=== PATIENT | female | born 1950 | race Caucasian/White ===

== ENCOUNTER 2016-11-24 08:49 | Emergency (ER) | payer OTHER, BC ==
--- NOTE | 2016-11-24 09:08 | EDPHY ---
General Narrative: CHIEF COMPLAINT: fall, left knee, ankle and foot pain HISTORY OF PRESENT ILLNESS: patient was walking out of a restaurant several days ago when she slipped down a slope. She said she slid and turned sideways striking her left leg on a curb. She is not entirely sure what happened otherwise. Since then she has had pain in the knee ankle and foot. The knee was the primary complaint 1st had the most swelling but is improved. She is also having pain over the lateral ankle and foot. Pain is worse with ambulation and palpation. The swelling is enough that it is difficult for her to bend the knee. Improved at rest and elevation. She also were compression stockings that helped. Seen at outside facility without any imaging and no formal diagnosis. No other associated complaints or modifying factors. No use of blood thinners. PRIOR ORTHO INJURIES: None ESTABLISHED ORTHOPEDIST: [facility], appointment on Saturday REVIEW OF SYSTEMS: Ten systems reviewed and are negative unless otherwise noted in the HPI EXAMINATION General Appearance: Alert, no distress Cardiovascular: Pulses normal throughout. symmetric radial, DP and PT pulses are 2+. Brisk cap refill Neurological: A&O, sensory symmetric, strength symmetric Skin: Warm and dry, no rash Extremities: Tenderness to palpation of the left knee, left ankle and midfoot. There is no crepitus at any level. There is mild swelling about the knee and the lateral malleolus on the left. Range of motion is fully intact in the ankle and foot. There is limited flexion of the knee due to swelling. Neurovascular intact distally. No erythema, edema or pain of the calf. No palpable cord. Psychiatric: Mood and affect normal DIFFERENTIAL DIAGNOSES: Including but not limited to sprain, strain, fracture, fracture dislocation, contusion MDM: 9:05 a.m. mechanical injury with left knee, ankle and foot pain. Examination is more consistent with sprain and fracture. She has been seen prior to today but without imaging, thus I will obtain x-rays of all 3 areas. She is neurovascular intact in no acute distress 10:38 a.m. x-ray of the ankle shows a lucency of the talar dome with questionable etiology. I will place the patient in a boot and crutches. I have paged Orthopedics to discuss their preferred management of this. X-ray of the knee is unremarkable. X-ray of the foot is pending, but I do not appreciate any findings by my interpretation. 11:00 a.m. patient has been placed in a boot for prophylaxis. She has crutches at home. I discussed the case with Dr. Holguin, he says the patient can be discharged without further imaging. He will see the patient in the office next week. I discussed this with the patient. She will go home in the boot and use her crutches at home. She is nonweightbearing of painful on weight-bearing as tolerated. Tramadol prescription provided. Follow up with Orthopedics next week. She informed that she also has an appointment with Sports Medicine on Saturday. ED Precautions: Worsening pain. Erythema, edema, cyanosis, pallor, paresthesia or anesthesia. SUPERVISION: This patient was independently evaluated without the aide of supervising physician. - History Smoking Status: Never smoked - Objective Vital Signs: Initial Vital Signs Temperature (C) 97.7 F 11/24/16 08:50 Heart Rate 55 L 11/24/16 08:50 Respiratory Rate 16 11/24/16 08:50 Blood Pressure 169/77 H 11/24/16 08:50 O2 Sat (%) 93 11/24/16 08:50 O2 Delivery Mode Room Air Allergies/Adverse Reactions: codeine [Codeine] Allergy (Intermediate, Verified 11/26/11 08:39) erythromycin base [Erythromycin Base] Adverse Reaction (Severe, Verified 08:39) NAUSEA Home Medications: Medication Instructions Recorded Pantoprazole Sodium [Protonix] 40 mg PO DAILY 11/26/11 Propranolol HCl 60 mg PO 05/23/12 traMADol [Ultram 50 mg (*)] 50 mg PO Q4 PRN #12 tab 11/24/16 Departure - Departure Disposition: Home, Routine, Self-Care Clinical Impression: Left knee sprain Qualifiers: Encounter type: initial encounter Involved ligament of knee: unspecified ligament Qualified Code(s): S83.92XA - Sprain of unspecified site of left knee, initial encounter Left ankle sprain Qualifiers: Encounter type: initial encounter Involved ligament of ankle: unspecified ligament Qualified Code(s): S93.402A - Sprain of unspecified ligament of left ankle, initial encounter Sprain of foot, left Qualifiers: Encounter type: initial encounter Qualified Code(s): S93.602A - Unspecified sprain of left foot, initial encounter Fracture of talus of left ankle, closed Qualifiers: Encounter type: initial encounter Talus location: dome of talus Fracture alignment: nondisplaced Qualified Code(s): S92.145A - Nondisplaced dome fracture of left talus, initial encounter for closed fracture Condition: Good Instructions: Ankle Sprain (ED), Knee Sprain (ED), Foot Sprain (ED) Additional Instructions: Follow-up with Orthopedics for definitive care. Return to the ER for worsening symptoms, numbness or tingling Referrals: Marisol Howe MD [Primary Care Provider] - As per Instructions Greg Holguin MD [Medical Doctor] - As per Instructions Prescriptions: traMADol [Ultram 50 mg (*)] 50 mg PO Q4 PRN #12 tab PRN Reason: Pain, Mild
== END 2016-11-24 11:20 | disposition home or self-care (01) ==
DX: S92.145A Nondisplaced dome fracture of left talus, initial encounter for closed fracture (principal); S83.92XA Sprain of unspecified site of left knee, initial encounter; S93.402A Sprain of unspecified ligament of left ankle, initial encounter; S93.602A Unspecified sprain of left foot, initial encounter; W01.198A Fall on same level from slipping, tripping and stumbling with subsequent striking against other object, initial encounter; Y92.511 Restaurant or cafe as the place of occurrence of the external cause; Y99.8 Other external cause status; Y93.01 Activity, walking, marching and hiking
CPT/HCPCS: 73562; 73610; 73630; 99283; L4386

== ENCOUNTER 2017-11-27 20:16 | Emergency (ER) | payer OTHER, BC ==
--- NOTE | 2017-11-27 21:14 | EDPHY ---
H & P Time Seen by Provider: 11/27/17 20:52 HPI/ROS: CHIEF COMPLAINT: High blood pressure HISTORY OF PRESENT ILLNESS: 67-year-old woman presents with high blood pressure which was seen today in the PCP office. 175 systolic at home. She was at Dr. Howe office and was changed from propranolol which she had been on for about 8 years for migraines to metoprolol 25 and Norvasc 5. She took a dose of each today and was still hypertensive and presents for evaluation. Specifically denies headache or vision symptoms, no difficulty with speech or balance or thought strength or sensation. No chest pain or shortness of breath, normal urination. REVIEW OF SYSTEMS: Eye: no change in vision ENT: no sore throat Cardiac: no chest pain or syncope Pulmonary: no cough or SOB Abdomen: no vomiting, no abdominal pain Musculoskeletal: no back pain Skin: no rash Neuro: no headache Constitutional: no fever : no urinary symptoms, normal urination A comprehensive 10 point review of systems is otherwise negative aside from elements mentioned in the history of present illness. PAST MEDICAL HISTORY: Recently diagnosed hypertension, reflux, migraines, C- section and appy Social history: , here with her spouse General Appearance: Alert and conversant, cooperative. Eyes: No scleral icterus. ENT, Mouth: Normal mucous membranes. Respiratory: Normal respiratory effort, breath sounds equal, lungs are clear to auscultation. No rales. Cardiovascular: Regular rate and rhythm. No murmur. Gastrointestinal: Abdomen is soft and non tender. Neurological: Alert, face symmetric, normal motor and sensory in extremities. Pupils equal and reactive, extraocular motion intact, fluent speech, not ataxic. Skin: Warm and dry, no rashes. Musculoskeletal: No peripheral edema. Psychiatric: Not agitated. Emergency Department course/MDM: Patient presents with hypertension but is unlikely having an acute hypertensive emergency or end-organ damage. She does say that she has been more tired over the past year and has had difficulty over the past year making it to the end of her full hour of exercise class although she has been continuing to go. She goes to [facility] tomorrow for follow-up to see Virgil Lynch for her hypertension. I think it is reasonable for her to be discharged tonight and follow up with Cardiology tomorrow. Patient and state they are comfortable with this plan. Smoking Status: Never smoked Constitutional: Initial Vital Signs Temperature (C) 36.7 C 11/27/17 20:29 Heart Rate 50 L 11/27/17 20:29 Respiratory Rate 16 11/27/17 20:29 Blood Pressure 201/69 H 11/27/17 20:29 O2 Sat (%) 95 11/27/17 20:29 O2 Delivery Mode Room Air Allergies/Adverse Reactions: codeine [Codeine] Allergy (Intermediate, Verified 11/26/11 08:39) erythromycin base [Erythromycin Base] Adverse Reaction (Severe, Verified 08:39) NAUSEA Home Medications: Medication Instructions Recorded Pantoprazole Sodium [Protonix] 40 mg PO DAILY 11/26/11 Metoprolol Succinate 11/27/17 amLODIPine BESYLATE 11/27/17 Departure - Departure Disposition: Home, Routine, Self-Care Clinical Impression: Hypertension Condition: Good Instructions: Hypertension (ED) Additional Instructions: Please follow-up at [facility] tomorrow as scheduled. Referrals: Virgil Lynch, CAD OPERATOR [Certified Nurse Practioner] - As per Instructions
== END 2017-11-27 21:22 | disposition home or self-care (01) ==
DX: I10 Essential (primary) hypertension (principal)

== ENCOUNTER → 2017-12-04 | Outpatient (CLI) | payer OTHER, BC | LOC: BHFA 09:15 | PROVIDERS: ATTEND Internal Medicine Cardiovascular Disease | DX: R00.2 Palpitations (principal) ==

== ENCOUNTER → 2017-12-10 | Outpatient (CLI) | payer OTHER, BC | LOC: BHFA 09:00 | PROVIDERS: ATTEND Internal Medicine | DX: R00.2 Palpitations (principal); R06.02 Shortness of breath | CPT/HCPCS: 78452; 93017; A9500; J2785 ==

== ENCOUNTER → 2018-09-19 | Outpatient (CLI) | payer OTHER, BC | LOC: FIMAGING 09:34 | PROVIDERS: ATTEND Nurse Practitioner Family | DX: M79.604 Pain in right leg (principal) ==